=== PATIENT | male | born 1960 | race American Indian/Alaskan Native ===

== ENCOUNTER 2021-11-28 20:53 | Emergency (ER) | payer MEDICAID ==
[2021-11-28 23:17] LABS: Hematocrit 42.3 % (35.5-45.6); Hemoglobin 14.2 gm/dl (11.8-15.2); Mean Corpuscular HGB Conc 34 % (32-34); Mean Corpuscular Volume 87 fl (84-94); Platelet Count 262 K/mm3 (140-440); Red Blood Count 4.89 M/mm3 (3.65-5.03); Red Cell Distribution Width 13.9 % (13.2-15.2)
[2021-11-28] MEDS ORDERED: ONDANSETRON 4 MG/2 ML INJ IV ONE (23:24)
[2021-11-28] MEDS ORDERED: MORPHINE 4 MG/1 ML INJ IV ONE (23:24)
[2021-11-28 23:45] LABS: Albumin 4.8 g/dL (3.9-5); Calcium 8.9 mg/dL (8.4-10.2)
[2021-11-29] MEDS ORDERED: ONDANSETRON 4 MG ODT TAB PO ONE (00:08)
[2021-11-29] MEDS ORDERED: MORPHINE 4 MG/1 ML INJ IM ONE (00:08)
[2021-11-29 00:17] VITALS: BP 156/92
--- NOTE | 2021-11-29 00:58 | Cat Scan Report ---
CT ABDOMEN AND PELVIS WITHOUT CONTRAST INDICATION / CLINICAL INFORMATION: flank pain. TECHNIQUE: Axial CT images were obtained through the abdomen and pelvis without IV contrast. All CT scans at this location are performed using CT dose reduction for ALARA by means of automated exposure control. COMPARISON: None available. FINDINGS: LOWER CHEST: No significant abnormality. AORTA / ARTERIES: No significant abnormality. IVC / VEINS: No significant abnormality. LYMPH NODES: No significant adenopathy. COLON: No significant abnormality. APPENDIX: No significant abnormality. STOMACH / SMALL BOWEL: No significant abnormality. PERITONEUM: No free fluid. No free air. No fluid collection. LIVER: No significant abnormality. GALLBLADDER: No significant abnormality. BILE DUCTS: No significant abnormality. PANCREAS: No significant abnormality. SPLEEN: No significant abnormality. ADRENALS: No significant abnormality. RIGHT KIDNEY / URETER: Within the right ureter there is a 7 mm stone which causes moderate hydrourete r and hydronephrosis, as well as marked perinephric fat stranding. LEFT KIDNEY / URETER: Punctate 2 mm nonobstructing stone within the left kidney. URINARY BLADDER: No significant abnormality. REPRODUCTIVE ORGANS: No significant abnormality. SKELETAL SYSTEM: Scattered degeneration. ADDITIONAL FINDINGS: None. IMPRESSION: 1. There is a 7 mm stone within the right mid ureter causing moderate hydronephrosis and hydroureter. There is also marked perinephric fat stranding of the right kidney. 2. Nonobstructing 2 mm stone within the left kidney. Signer Name: Shahram Valverde DO Signed: 11/29/2021 12:54 AM Workstation Name: [id number]
[2021-11-29] MEDS ORDERED: TAMSULOSIN 0.4 MG CAP PO ONE (01:10)
[2021-11-29 02:27] LABS: Basophils % (Manual) 0 % (0.0-1.8); Eosinophils % (Manual) 0 % (0.0-4.3); Total Cells Counted 100
[2021-11-29 02:28] LABS: Anisocytosis 1+; Platelet Estimate Consistent w Auto
[2021-11-29 02:34] LABS: Bacteria,Urine 1+ /HPF (Negative); Bilirubin,Urine NEG (Negative); Blood,Urine MOD (Negative); Color,Urine Yellow (Yellow); Mucus,Urine 2+ /HPF; Urobilinogen,Urine < 2.0 mg/dL (<2.0)
[2021-11-29 02:37] LABS: WBC,Urine > 182.0 /HPF (0.0-6.0)
[2021-11-29] MEDS ORDERED: LIDOCAINE-MPF (1%) 10 MG/1 ML VIAL 5 ML INFILTRATI ONE (03:01)
--- NOTE | 2021-11-29 03:18 | Emergency Department Report ---
ED General Adult HPI - General Chief complaint: Abdominal Pain Stated complaint: ABD/BACK PAIN Source: patient Mode of arrival: Ambulatory Limitations: No Limitations - History of Present Illness Initial comments: Patient is a 61-year-old -Burkin[place] male with a history of coronary artery disease s/p PTCA stents, chronic low back pain and GERD presents to the ED with complaint of acute onset persistent right flank pain that radiates to the lower back with nausea and vomiting for the last 2 days. Patient states that he has not been able to sleep in the last 24 hours because of worsening pain. Patient denies fever, chills, hematuria, dysuria, urinary frequency and urgency, testicular pain, chest pain or shortness of breath, traumatic injury or heavy lifting, numbness and tingling or weakness of lower extremities bilaterally. MD Complaint: Low back pain, right flank pain, nausea and vomiting -: Sudden, days(s) (2) Location: back, abdomen (RIGHT FLANK PAIN) Radiation: back (lower), abdomen (right flank pain) Severity scale (0 -10): 10 Quality: aching, sharp Consistency: constant Improves with: none Worsens with: movement Associated Symptoms: denies other symptoms, nausea/vomiting. denies: confusion, chest pain, cough, diaphoresis, fever/chills, headaches, loss of appetite, malaise, rash, shortness of breath, weakness Treatments Prior to Arrival: none - Related Data Previous Rx's Medication Instructions Recorded Last Taken Type Aspirin [Aspirin BABY CHEW TAB] 81 mg PO QDAY #30 tab.chew 08/31/19 Unknown Rx AtorvaSTATin [Lipitor] 80 mg PO QHS #60 tablet 08/31/19 Unknown Rx Clopidogrel [Plavix] 75 mg PO QDAY #30 tablet 08/31/19 Unknown Rx Ketorolac [Toradol] 10 mg PO Q12H PRN #20 tab 11/29/21 Unknown Rx Ondansetron [Zofran Odt] 4 mg PO Q8HR PRN #20 tab.rapdis 11/29/21 Unknown Rx Sulfamethoxazole/Trimethoprim 1 each PO Q12H #20 tab 11/29/21 Unknown Rx [Bactrim DS TAB] Tamsulosin [Flomax] 0.4 mg PO QDAY #15 cap 11/29/21 Unknown Rx methOCARBAMOL [Robaxin TAB] 750 mg PO Q8H PRN #30 tab 11/29/21 Unknown Rx traMADoL [Ultram] 50 mg PO Q6HR PRN #12 tablet 11/29/21 Unknown Rx Allergies Allergy/AdvReac Type Severity Reaction Status Date / Time No Known Allergies Allergy Unverified 08/28/19 08:38 ED Review of Systems ROS: Stated complaint: ABD/BACK PAIN Other details as noted in HPI Constitutional: denies: chills, fever Eyes: denies: eye pain, eye discharge, vision change ENT: denies: ear pain, throat pain Respiratory: denies: cough, shortness of breath, wheezing Cardiovascular: denies: chest pain, palpitations Endocrine: no symptoms reported Gastrointestinal: abdominal pain (Right flank pain), nausea, vomiting. denies: diarrhea Genitourinary: denies: urgency, dysuria Musculoskeletal: back pain (Low back pain). denies: joint swelling, arthralgia Skin: denies: rash, lesions Neurological: denies: headache, weakness, paresthesias Psychiatric: denies: anxiety, depression Hematological/Lymphatic: denies: easy bleeding, easy bruising ED Past Medical Hx - Past Medical History Hx Heart Attack/AMI: Yes Hx GERD: Yes Additional medical history: Chronic low back pain - Social History Smoking Status: Current Every Day Smoker - Medications Home Medications: Home Medications Medication Instructions Recorded Confirmed Last Taken Type Aspirin [Aspirin BABY CHEW TAB] 81 mg PO QDAY #30 tab.chew 08/31/19 Unknown Rx AtorvaSTATin [Lipitor] 80 mg PO QHS #60 tablet 08/31/19 Unknown Rx Clopidogrel [Plavix] 75 mg PO QDAY #30 tablet 08/31/19 Unknown Rx Ketorolac [Toradol] 10 mg PO Q12H PRN #20 tab 11/29/21 Unknown Rx Ondansetron [Zofran Odt] 4 mg PO Q8HR PRN #20 tab.rapdis 11/29/21 Unknown Rx Sulfamethoxazole/Trimethoprim 1 each PO Q12H #20 tab 11/29/21 Unknown Rx [Bactrim DS TAB] Tamsulosin [Flomax] 0.4 mg PO QDAY #15 cap 11/29/21 Unknown Rx methOCARBAMOL [Robaxin TAB] 750 mg PO Q8H PRN #30 tab 11/29/21 Unknown Rx traMADoL [Ultram] 50 mg PO Q6HR PRN #12 tablet 11/29/21 Unknown Rx ED Physical Exam - General Limitations: No Limitations General appearance: alert, in no apparent distress - Head Head exam: Present: atraumatic, normocephalic, normal inspection - Eye Eye exam: Present: normal appearance, PERRL, EOMI Pupils: Present: normal accommodation - ENT ENT exam: Present: normal exam, normal orophraynx, mucous membranes moist, TM's normal bilaterally, normal external ear exam - Neck Neck exam: Present: normal inspection, full ROM. Absent: tenderness - Respiratory Respiratory exam: Present: normal lung sounds bilaterally. Absent: respiratory distress, wheezes, rales, rhonchi, chest wall tenderness, accessory muscle use, decreased breath sounds, prolonged expiratory - Cardiovascular Cardiovascular Exam: Present: regular rate, normal rhythm, normal heart sounds. Absent: systolic murmur, diastolic murmur, rubs, gallop - GI/Abdominal GI/Abdominal exam: Present: soft, tenderness (Palpable right flank tenderness), normal bowel sounds. Absent: guarding, rebound, hyperactive bowel sounds, hypoactive bowel sounds, organomegaly - Extremities Exam Extremities exam: Present: normal inspection, full ROM, normal capillary refill. Absent: tenderness - Back Exam Back exam: Present: normal inspection, full ROM, tenderness (Palpable lumbosacral paraspinal musculoskeletal tenderness), CVA tenderness (R) (Palpable right CVA tenderness), muscle spasm, paraspinal tenderness. Absent: CVA tenderness (L) - Neurological Exam Neurological exam: Present: alert, oriented X3, CN II-XII intact, normal gait, reflexes normal - Psychiatric Psychiatric exam: Present: normal affect, normal mood - Skin Skin exam: Present: warm, dry, intact, normal color. Absent: rash ED Course Vital Signs 11/28/21 11/29/21 21:03 00:16 Temperature 99.0 F Pulse Rate 83 55 L Respiratory 16 16 Rate Blood Pressure 177/107 Blood Pressure 156/92 [Right] O2 Sat by Pulse 95 98 Oximetry ED Medical Decision Making - Lab Data Result diagrams: 11/28/21 22:38 11/28/21 22:38 - Radiology Data Radiology results: report reviewed, image reviewed [facility] [address] [place] [address] Cat Scan Report Signed Patient: FARNAZ PANDEY MR#: [id number] : 1960 Acct:[id number] Age/Sex: 61 / M ADM Date: 11/28/21 Loc: ED Attending Dr: Ordering Physician: IRENE RODRIGUEZ Date of Service: 11/29/21 Procedure(s): CT abdomen pelvis wo con Accession Number(s): [id number] cc: IRENE RODRIGUEZ CT ABDOMEN AND PELVIS WITHOUT CONTRAST INDICATION / CLINICAL INFORMATION: flank pain. TECHNIQUE: Axial CT images were obtained through the abdomen and pelvis without IV contrast. All CT scans at this location are performed using CT dose reduction for ALARA by means of automated exposure control. COMPARISON: None available. FINDINGS: LOWER CHEST: No significant abnormality. AORTA / ARTERIES: No significant abnormality. IVC / VEINS: No significant abnormality. LYMPH NODES: No significant adenopathy. COLON: No significant abnormality. APPENDIX: No significant abnormality. STOMACH / SMALL BOWEL: No significant abnormality. PERITONEUM: No free fluid. No free air. No fluid collection. LIVER: No significant abnormality. GALLBLADDER: No significant abnormality. BILE DUCTS: No significant abnormality. PANCREAS: No significant abnormality. SPLEEN: No significant abnormality. ADRENALS: No significant abnormality. RIGHT KIDNEY / URETER: Within the right ureter there is a 7 mm stone which causes moderate hydroureter and hydronephrosis, as well as marked perinephric fat stranding. LEFT KIDNEY / URETER: Punctate 2 mm nonobstructing stone within the left kidney. URINARY BLADDER: No significant abnormality. REPRODUCTIVE ORGANS: No significant abnormality. SKELETAL SYSTEM: Scattered degeneration. ADDITIONAL FINDINGS: None. IMPRESSION: 1. There is a 7 mm stone within the right mid ureter causing moderate hydronephrosis and hydroureter. There is also marked perinephric fat stranding of the right kidney. 2. Nonobstructing 2 mm stone within the left kidney. Signer Name: Shahram Simeon DO Signed: 11/29/2021 12:54 AM Workstation Name: [id number] Transcribed By: HIWOT Dictated By: SHAHRAM SIMEON DO Electronically Authenticated By: SHAHRAM SIMOEN DO Signed Date/Time: 11/29/21 0054 DD/ 0046 TD/TT: Print - Medical Decision Making This is a 61-year-old -Burkin[place] male with a history of coronary artery disease s/p PTCA stents, chronic low back pain and GERD presents to the ED with complaint of acute onset persistent right flank pain that radiates to the lower back with nausea and vomiting for the last 2 days. Patient states that he has not been able to sleep in the last 24 hours because of worsening pain. In the ED, patient is alert and oriented x3 and is not in any distress. Patient was t reated for pain in the ED. Patient also received antiemetics. Urinalysis showed significant urinary tract infection with hematuria. Lab test results were reviewed and showed creatinine of 1.6. The rest of the lab test results are nonactionable. Abdomen pelvis CT scan without contrast showed a 7 mm stone within the right mid ureter causing moderate hydronephrosis and hydroureter. There is also marked perinephric fat stranding of the right kidney. It also showed a nonobstructing 2 mm stone within the left kidney. Patient was also treated in the ED with Rocephin 1 g intramuscular injection and Flomax 0.4 mg p.o. x1. On reevaluation, patient pain is well controlled medication. Patient has not had any nausea or vomiting while in the ED. Patient was discharged home on pain medications and antibiotics as well as Flomax, and was referred to the urologist Dr. Laws for further evaluation. Patient was advised to contact Dr. Laws's office first thing in the morning on Monday, November 01, 2021 to schedule a follow-up appointment. Patient was advised return to the ED immediately if symptoms get worse. - Differential Diagnosis Kidney stone; UTI; colitis; muscle spasm; muscle strain; chronic back pain Critical care attestation.: If time is entered above; I have spent that time in minutes in the direct care of this critically ill patient, excluding procedure time. ED Disposition Clinical Impression: Calculus of both kidneys, Nausea and vomiting in adult patient, Acute right flank pain, Spasm of muscle of lower back, Acute urinary tract infection Disposition: 01 HOME / SELF CARE / HOMELESS Is pt being admited?: No Does the pt Need Aspirin: No Condition: Stable Instructions: Muscle Cramps and Spasms, [id number], Kidney Stones, [id number], Flank Pain, Adult, [id number], Nausea and Vomiting, Adult, [id number], Urinary Tract Infection, Adult, [id number] Additional Instructions: All lab test results were reviewed and are all nonactionable except for urinalysis that showed significant urinary tract infection with blood contention with kidney stones, and creatinine of 1.6 which is consistent with dehydration. The abdomen pelvis CT scan without contrast showed a 7 mm stone within the right mid ureter causing moderate hydronephrosis and hydroureter. There is also marked perinephric fat stranding of the right kidney. It also showed a nonobstructing 2 mm stone within the left kidney. Therefore take medication with food, drink plenty of fluids and follow-up with the urologist Dr. Laws in 3-5 days for reevaluation. Contact Dr. Laws's office in the next 3-5 days to schedule a follow-up appointment. Return to the ED immediately if symptoms get worse. Prescriptions: Sulfamethoxazole/Trimethoprim [Bactrim DS TAB] 1 each PO Q12H #20 tab Tamsulosin [Flomax] 0.4 mg PO QDAY #15 cap methOCARBAMOL [Robaxin TAB] 750 mg PO Q8H PRN #30 tab PRN Reason: Muscle Spasm Ketorolac [Toradol] 10 mg PO Q12H PRN #20 tab PRN Reason: Pain traMADoL [Ultram] 50 mg PO Q6HR PRN #12 tablet PRN Reason: Pain Ondansetron [Zofran Odt] 4 mg PO Q8HR PRN #20 tab.rapdis PRN Reason: Nausea Referrals: JANINE LAWS MD [Staff Physician] - 3-5 Days Time of Disposition: 03:22 Print Language: ECUADOREAN
== END 2021-11-29 03:44 | disposition home or self-care (01) ==
LOC: ED 20:53
DX: N20.0 Calculus of kidney (principal); M62.830 Muscle spasm of back; M54.50 Low back pain, unspecified; N39.0 Urinary tract infection, site not specified; K21.9 Gastro-esophageal reflux disease without esophagitis; F17.200 Nicotine dependence, unspecified, uncomplicated; Z79.82 Long term (current) use of aspirin; Z79.899 Other long term (current) drug therapy
CPT/HCPCS: 36415; 74176; 80053; 81001; 83690; 85007; 85025; 96372; 99284; J2270; J3490; J2405; Q0162

== ENCOUNTER 2022-02-11 10:23 | Outpatient (CLI) | payer MEDICAID ==
--- NOTE | 2022-02-11 12:16 | Cat Scan Report ---
CT ABDOMEN AND PELVIS WITHOUT CONTRAST HISTORY: CALCULUS OF KIDNEY N20.0. COMPARISON: 11/29/2021 TECHNIQUE: CT images of the abdomen and pelvis were obtained without administration of intravenous co ntrast. All CT scans at this location are performed using CT dose reduction for ALARA by means of au tomated exposure control. FINDINGS: Lungs/bones: Lung bases are clear Abdomen/pelvis: Within limits of a noncontrast exam the liver, spleen, adrenal glands, pancreas, gal lbladder appears normal. No definite renal stones are seen. There is a mid right ureteral stone measu ring 6 mm. Minimal inflammation stranding surrounding the right kidney which is improved since prior examination. The calculus was also seen in this location prior exam. Diffuse bladder wall thickening. No evidence for bowel obstruction. Marked degenerative changes seen throughout spine IMPRESSION: 1. 6 mm stone in the mid right ureter with no significant hydronephrosis. There is mild inflammation surrounding the right kidney. The stone location appears similar to the prior examination on 11/28/2021 2. Tiny 1 to 2 mm nonobstructing stone in the left kidney is unchanged. 3. Advanced degenerative change throughout spine. Neuroforaminal narrowing or canal narrowing at jeff ral levels in the lumbar spine Signer Name: Justice Linares MD Signed: 02/11/2022 12:11 PM Workstation Name: [id number]
== END 2022-02-11 10:24 | disposition home or self-care (01) ==
LOC: CT 10:23
PROVIDERS: ATTEND Urology
DX: N20.0 Calculus of kidney (principal); M47.819 Spondylosis without myelopathy or radiculopathy, site unspecified
CPT/HCPCS: 74176

== ENCOUNTER 2022-03-18 11:45 | Day surgery (SDC) | payer MEDICAID ==
--- NOTE | 2022-03-18 12:19 | Anesthesia Consultation ---
Anesthesia Consult and Med Hx Date of service: 03/18/22 - Airway Anesthetic Teeth Evaluation: Good ROM Head & Neck: Adequate Mental/Hyoid Distance: Adequate Mallampati Class: Class II Intubation Access Assessment: Good - Pulmonary Exam CTA: Yes - Cardiac Exam Cardiac Exam: No Murmur - Pre-Operative Health Status ASA Pre-Surgery Classification: ASA3 Proposed Anesthetic Plan: General - Pulmonary Hx Smoking: Yes (1/3 PPD X 16 YRS) Hx Sleep Apnea: No (THOMAS PRE SCREEN HIGH RISK) - Cardiovascular System Hx Hypertension: Yes (ON MEDS X 3 MONTHS) Hx Coronary Artery Disease: Yes Hx Heart Attack/AMI: Yes (2020) - Central Nervous System Hx Back Pain: Yes (CHRONIC) Hx Psychiatric Problems: No - Hematic Hx Anemia: No - Other Systems Hx Substance Use: Yes (DAILY MARIJUANA FOR PAIN CONTROL) Hx Cancer: No
--- NOTE | 2022-03-18 12:19 | Anesthesia Day of Surgery ---
Anesthesia Day of Surgery - Day of Surgery Patient Examined: Yes Patient H&P Reviewed: Yes Patient is NPO: Yes
[2022-03-18] MEDS ORDERED: MIDAZOLAM 2 MG/2 ML INJ IV NR (13:00)
[2022-03-18] MEDS ORDERED: LACTATED RINGERS 1,000 ML IV SCH (13:00)
[2022-03-18 13:21] LABS: Alanine Aminotransferase 31 units/L (7-56); Albumin 4.2 g/dL (3.9-5); BUN/Creatinine Ratio 18; Blood Urea Nitrogen 14 mg/dL (9-20); Calcium 8.8 mg/dL (8.4-10.2); Hemolysis Index 18
[2022-03-18 13:24] LABS: Hematocrit 39.4 % (35.5-45.6); Hemoglobin 13.4 gm/dl (11.8-15.2); Mean Corpuscular HGB Conc 34 % (32-34); Mean Corpuscular Volume 86 fl (84-94); Platelet Count 241 K/mm3 (140-440); Red Blood Count 4.58 M/mm3 (3.65-5.03); Red Cell Distribution Width 14.3 % (13.2-15.2)
[2022-03-18] MEDS ORDERED: ceFAZolin/Water 2 GM/20 ML 2 GM/20 ML SYRINGE IV ONE (14:27)
[2022-03-18] MEDS ORDERED: propofoL 200 MG/20 ML VIAL IV ONE (14:45)
[2022-03-18] MEDS ORDERED: LIDOCAINE MPF (2%) 20 MG/1 ML VIAL 5 ML ONE (14:47)
[2022-03-18] MEDS ORDERED: fentaNYL 100 MCG/2 ML INJ ONE (14:48)
--- NOTE | 2022-03-18 15:27 | Discharge Summary ---
Short Stay Discharge Plan Activity: other (no straining ) Weight Bearing Status: Full Weight Bearing Diet: low fat, low cholesterol, low salt Special Instructions: other (inc fluids ) Durable Medical Equipment Needed Upon Discharge: other ([facility] ) Follow up with: PRIMARY CARE, [Primary Care Provider] - 7 Days JANINE LAWS MD [Staff Physician] - 7 Days
--- NOTE | 2022-03-18 15:27 | Post Operative Note ---
Date of procedure: 03/18/22 Pre-op diagnosis: r ureteral stone Post-op diagnosis: same Procedure: cysto stent Anesthesia: GETA Surgeon: JANINE LAWS Estimated blood loss: none Pathology: none Condition: stable Disposition: PACU
[2022-03-18] MEDS ORDERED: ePHEDrine SULFATE 50 MG/1 ML INJ ONE (15:38)
[2022-03-18] MEDS ORDERED: IOHEXOL 300 MG/ML 100ML IR ONE (15:56)
[2022-03-18] MEDS ORDERED: ceFAZolin/STERILE WATER 2 GM/20 ML SYRINGE IV NR (16:00)
--- NOTE | 2022-03-18 16:15 | Fluoroscopy Report ---
FLUOROSCOPY RETROGRADE UROGRAPHY INDICATION: HYDRONEPHROSIS. COMPARISON: None. IMPRESSION: 2.1 minutes of fluoroscopy time was provided by radiology during retrograde urography by the urologist. 9 fluoroscopic images are presented. A small filling defect consistent with a stone is identified in the distal right ureter which was removed. A right ureteral stent was placed with re solution of hydronephrosis. Please correlate with the procedural report as needed. Signer Name: Conner Cantu Jr, MD Signed: 03/18/2022 4:11 PM Workstation Name: [id number]
[2022-03-18] MEDS ORDERED: WATER FOR IRRIG STERILE 2000 ML IR ONE (16:18)
[2022-03-18] MEDS ORDERED: HYDROmorphone 0.5 MG/0.5 ML INJ IV PRN ×2 (16:23)
[2022-03-18] MEDS ORDERED: KETOROLAC 30 MG/1 ML INJ IV PRN (16:23)
[2022-03-18] MEDS ORDERED: ONDANSETRON 4 MG/2 ML INJ IV PRN (16:23)
--- NOTE | 2022-03-18 16:39 | Post Anesthesia Evaluation ---
- Post Anesthesia Evaluation Patient Participated: Yes Airway Patent: Yes Stable Respiratory Function: Yes Nausea/Vomiting: No Temp > 96.8F: Yes Pain Manageable: Yes Adequeate Hydration: Yes Anesthesia Complications: No Block Receding Appropriately: Not Applicable Patient on Ventilator: No
[2022-03-18 17:03] VITALS: BP 133/87
--- NOTE | 2022-03-18 19:09 | Operative Report ---
DATE OF SURGERY: 03/18/2022 PREOPERATIVE DIAGNOSIS: Right ureteral stones for months, on Plavix. POSTOPERATIVE DIAGNOSIS: Right ureteral stones for months, on Plavix with intermittent pain. PROCEDURES: Cystoscopy, bilateral retrograde pyelograms, right ureteral balloon dilatation, ureteroscopy and double-J stent. SURGEON: Yoshi Benedict MD. ANESTHESIA: General. FINDINGS: This is a gentleman with a 6 mm stone. He was having severe right flank pain, now he has left. This has been going on for months, now presents for treatment. He has been on Plavix, so we told him this may be staged procedure. DESCRIPTION OF PROCEDURE: The patient was brought to operating room and placed on the operating table. Following induction of anesthesia, he was placed in a lithotomy position, prepped and draped in the usual sterile fashion. 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 The orifices on both sides were cannulated. Retrograde on the left was very delicate, good drainage on the right, a little J hooking on both sides, but on the right there was some hold up, a bit more to the lower ureter. There was also some questionable narrowing in the upper ureter. At this point, the wire easily coiled in the kidney and it looked like the stone pushed up into the kidney. We ballooned it. We were able to get up to the mid-ureter with the ureteroscope and then even the flexible, but we did not want to traumatize his kidney or ureter. He has been on Plavix, so we placed a double-J stent. The patient tolerated the procedure well and brought to recovery room, urine was minimally tinged in a stable condition. TID: [id number] RECEIPT: [id number] PIPPA/JO[place]AB[place]
== END 2022-03-18 17:55 | disposition home or self-care (01) ==
LOC: OR 11:45
PROVIDERS: ATTEND Urology
DX: N13.2 Hydronephrosis with renal and ureteral calculous obstruction (principal); N40.0 Benign prostatic hyperplasia without lower urinary tract symptoms; I25.2 Old myocardial infarction; I25.10 Atherosclerotic heart disease of native coronary artery without angina pectoris; E78.5 Hyperlipidemia, unspecified; K21.9 Gastro-esophageal reflux disease without esophagitis; I10 Essential (primary) hypertension; F17.210 Nicotine dependence, cigarettes, uncomplicated; Z79.899 Other long term (current) drug therapy; Z79.82 Long term (current) use of aspirin; Z95.5 Presence of coronary angioplasty implant and graft; Z98.890 Other specified postprocedural states
CPT/HCPCS: 36415; 52332; 52351; 74420; 80053; 85027; C1726; C1769; C2617; J0690; J2250; J2704; J3010; J3490; J7120; Q9967

== ENCOUNTER 2022-03-23 13:37 | Emergency (ER) | payer MEDICAID ==
[2022-03-23 14:42] VITALS: BP 104/73
== END 2022-03-24 01:59 | disposition left against medical advice (07) ==
LOC: ED 13:37
DX: R11.10 Vomiting, unspecified (principal); R19.7 Diarrhea, unspecified; Z53.21 Procedure and treatment not carried out due to patient leaving prior to being seen by health care provider

== ENCOUNTER 2022-03-27 11:09 | Emergency (ER) | payer MEDICAID ==
[2022-03-27 11:43] VITALS: BP 93/62
--- NOTE | 2022-03-27 11:52 | Emergency Department Report ---
ED General Adult HPI - General Chief complaint: Extremity Problem,Nontraumatic Stated complaint: SWOLLEN RIGHT FOOT Time Seen by Provider: 03/27/22 11:48 Source: patient Mode of arrival: Ambulatory Limitations: No Limitations - History of Present Illness Severity scale (0 -10): 7 - Related Data Home Medications Medication Instructions Recorded Confirmed Last Taken Baclofen [Lioresal] 10 mg PO BID 03/16/22 03/16/22 Unknown Ezetimibe [Zetia] 10 mg PO DAILY 03/16/22 03/16/22 Unknown Gabapentin [Neurontin] 100 mg PO TID 03/16/22 03/16/22 Unknown Metoprolol [Lopressor] 25 mg PO DAILY 03/16/22 03/16/22 Unknown Pantoprazole [Protonix TAB] 40 mg PO QDAY 03/16/22 03/16/22 Unknown Tamsulosin [Flomax] 0.4 mg PO PRN PRN 03/16/22 03/16/22 Unknown oxyCODONE /ACETAMINOPHEN [Percocet 1 tab PO Q6HR PRN 03/16/22 03/16/22 Unknown 5/325] Previous Rx's Medication Instructions Recorded Last Taken Type Aspirin [Aspirin BABY CHEW TAB] 81 mg PO QDAY #30 tab.chew 08/31/19 03/16/22 Rx AtorvaSTATin [Lipitor] 80 mg PO QHS #60 tablet 08/31/19 Unknown Rx Clopidogrel [Plavix] 75 mg PO QDAY #30 tablet 08/31/19 03/16/22 Rx Colchicine 0.6 mg PO Q2HR #20 03/27/22 Unknown Rx Indomethacin [Indocin] 25 mg PO Q8H #14 cap 03/27/22 Unknown Rx cephALEXin [Keflex] 500 mg PO Q8HR #30 cap 03/27/22 Unknown Rx Allergies Allergy/AdvReac Type Severity Reaction Status Date / Time No Known Allergies Allergy Verified 03/23/22 14:43 ED Review of Systems ROS: Stated complaint: SWOLLEN RIGHT FOOT Other details as noted in HPI Comment: All other systems reviewed and negative ED Past Medical Hx - Past Medical History Hx Hypertension: Yes (ON MEDS X 3 MONTHS) Hx Heart Attack/AMI: Yes (2019) Hx GERD: Yes Hx Kidney Stones: Yes Hx Tuberculosis: Yes (20 YRS AGO , NO TX , STATES CXR IS OK) Additional medical history: Chronic low back pain - Surgical History Hx Coronary Stent: Yes (X 3 2019) - Social History Smoking Status: Current Every Day Smoker - Medications Home Medications: Home Medications Medication Instructions Recorded Confirmed Last Taken Type Aspirin [Aspirin BABY CHEW TAB] 81 mg PO QDAY #30 tab.chew 08/31/19 03/16/22 03/16/22 Rx AtorvaSTATin [Lipitor] 80 mg PO QHS #60 tablet 08/31/19 03/16/22 Unknown Rx Clopidogrel [Plavix] 75 mg PO QDAY #30 tablet 08/31/19 03/16/22 03/16/22 Rx Baclofen [Lioresal] 10 mg PO BID 03/16/22 03/16/22 Unknown History Ezetimibe [Zetia] 10 mg PO DAILY 03/16/22 03/16/22 Unknown History Gabapentin [Neurontin] 100 mg PO TID 03/16/22 03/16/22 Unknown History Metoprolol [Lopressor] 25 mg PO DAILY 03/16/22 03/16/22 Unknown History Pantoprazole [Protonix TAB] 40 mg PO QDAY 03/16/22 03/16/22 Unknown History Tamsulosin [Flomax] 0.4 mg PO PRN PRN 03/16/22 03/16/22 Unknown History oxyCODONE /ACETAMINOPHEN [Percocet 1 tab PO Q6HR PRN 03/16/22 03/16/22 Unknown History 5/325] Colchicine 0.6 mg PO Q2HR #20 03/27/22 Unknown Rx Indomethacin [Indocin] 25 mg PO Q8H #14 cap 03/27/22 Unknown Rx cephALEXin [Keflex] 500 mg PO Q8HR #30 cap 03/27/22 Unknown Rx ED Physical Exam - General Limitations: No Limitations General appearance: alert, in no apparent distress - Head Head exam: Present: atraumatic, normocephalic - Eye Eye exam: Present: normal appearance, EOMI - ENT ENT exam: Present: mucous membranes moist - Neck Neck exam: Present: normal inspection - Respiratory Respiratory exam: Present: normal lung sounds bilaterally. Absent: respiratory distress - Cardiovascular Cardiovascular Exam: Present: regular rate, normal rhythm. Absent: systolic murmur, diastolic murmur, rubs, gallop - GI/Abdominal GI/Abdominal exam: Present: soft, normal bowel sounds - Rectal Rectal exam: Present: deferred - Extremities Exam Extremities exam: Present: normal inspection, tenderness, normal capillary refill, joint swelling. Absent: pedal edema, calf tenderness - Expanded Lower Extremity Exam Right Foot/Toe exam: Present: tenderness (WARM TENDER HALLUX WITH SWELLING TENDER TO JOINT TOO. ), swelling, erythema. Absent: abrasion, ecchymosis, deformity, puncture wound, tenderness at base of 5th metatarsal - Back Exam Back exam: Present: normal inspection - Neurological Exam Neurological exam: Present: alert, oriented X3 - Psychiatric Psychiatric exam: Present: normal affect, normal mood - Skin Skin exam: Present: warm, dry, intact, normal color. Absent: rash ED Course Vital Signs 03/27/22 11:34 Temperature 98.4 F Pulse Rate 61 Respiratory 18 Rate Blood Pressure 93/62 [Right] O2 Sat by Pulse 100 Oximetry Critical care attestation.: If time is entered above; I have spent that time in minutes in the direct care of this critically ill patient, excluding procedure time. ED Disposition Clinical Impression: Cellulitis of toe, left, Onychomycosis Disposition: HOME / SELF CARE / HOMELESS Condition: Stable Instructions: Fungal Nail Infection, Cellulitis, Adult, Uric Acid Nephropathy, Low-Purine Eating Plan, Calcium Pyrophosphate Deposition Prescriptions: Colchicine 0.6 mg PO Q2HR #20 Indomethacin [Indocin] 25 mg PO Q8H #14 cap cephALEXin [Keflex] 500 mg PO Q8HR #30 cap Referrals: [facility] [Provider Group] - 3-5 Days
[2022-03-27] MEDS ORDERED: oxyCODONE /ACETAMINOPHEN 5-325MG TAB PO ONE (11:53)
== END 2022-03-27 12:05 | disposition home or self-care (01) ==
LOC: ED 11:09
DX: L03.032 Cellulitis of left toe (principal); B35.1 Tinea unguium; I10 Essential (primary) hypertension; I21.9 Acute myocardial infarction, unspecified; N20.0 Calculus of kidney; A15.9 Respiratory tuberculosis unspecified; F17.200 Nicotine dependence, unspecified, uncomplicated; Z79.899 Other long term (current) drug therapy
CPT/HCPCS: 99282